=== PATIENT | male | born 1980 | race Caucasian/White ===

== ENCOUNTER 2024-05-19 06:51 | Emergency (ER) | payer BC, SELFPAY ==
[2024-05-19 06:53] VITALS: BP 149/101; PULSE 92; RESP 20; TEMP 36.6; O2SAT 98; BMI 30.2
--- NOTE | 2024-05-19 07:08 | HMH.EDGENADL ---
Discharge Plan Disposition Chief Complaint: Wound/Laceration Referrals Follow up/Referrals: Provider,Referral, [Primary Care Provider] - See instructions Activity Restrictions/Add. Instructions Additional Instructions/Restrictions: You were evaluated in the emergency department today. Please keep your wound clean and dry. Do not submerge it under any water until completely healed and sutures are removed. Sutures will need to be removed in approximately 8-10 days. I recommend removal by medical professional. Follow-up closely with your primary care provider for wound check. Return to the emergency department for new or worsening symptoms, such as redness warmth surrounding the wound, pus draining from the wound, or other concerns. Clinical Impressions Clinical Impression: Laceration of leg Instructions Patient Instructions: DI for Laceration Repair Discharge ED Provider: Chiquita Husain General Adult HPI General Chief complaint: Wound/Laceration Stated complaint: laceraion L left leg Time Seen by Provider: 05/19/24 07:01 Mode of Arrival: Ambulatory Source of Information: Patient Limitations: No Limitations Description of Symptoms (Recalled from ER Triage Doc. by RN): Pt presents to ED for a leg laceration. Pt states he cut his leg on the guard rail. Pt states he's not in pain and has no other complaints at this time. Pt is A&O*4. History of Present Illness HPI narrative: This patient is a 43-year-old male who denies significant past medical history presenting to the emergency department for evaluation with concern for a wound to his left lower leg. He reports that he is camping and he was walking from his campsite to his car when he hit his left cuba on a guardrail. This happened just prior to arrival. No other concerns or complaints. No numbness or tingling noted. He states his last tetanus shot was in 2007. Related Data Allergies Allergy/AdvReac Type Severity Reaction Status Date / Time HYDROCODONE Allergy Unknown Uncoded 10/18/17 14:57 INGREDIENT: NO KNOWN - NO Allergy Unknown Uncoded 10/18/17 14:57 KNOWN DRUG ALLERGY [facility] Disclaimer: The information contained in this section may have been updated after the patient was seen, as this information can be updated by other users. Social History Smoking Status: Unknown if ever smoked alcohol intake: never current occupational status: employed Travel in the last 8 weeks: None ROS Obtained: Yes All systems reviewed & no additional complaints except as documented Physical Exam General General appearance: alert and in no apparent distress Head Head exam: atraumatic and normocephalic Eye Eye exam: Present normal appearance, PERRL and EOMI ENT ENT exam: Present normal exam, normal oropharynx, mucous membranes moist and normal external ear exam Neck Neck exam: Present normal inspection, full ROM and trachea midline; Absent tenderness Chest Chest inspection: Present normal inspection and symmetric chest wall rise; Absent tenderness Respiratory Respiratory exam: Present normal lung sounds bilaterally; Absent respiratory distress, wheezes, stridor or accessory muscle use Cardiovascular Cardiovascular exam: Present regular rate and normal rhythm Abdominal Exam Abdominal exam: Present soft; Absent distention, tenderness or guarding Extremities Exam Extremities exam: Present full ROM, normal capillary refill and other (1.5 cm linear laceration to the center of the anterior left lower leg that is hemostatic. All compartments soft. Neurovascularly intact distally.); Absent tenderness or edema Back Exam Back exam: Present normal inspection and full ROM; Absent tenderness Neurological Exam Neurological exam: Present alert, oriented X3, CN II-XII intact and normal gait; Absent motor sensory deficit Psychiatric Psychiatric exam: Present normal affect and normal mood Skin Skin exam: Present warm and dry Medical Decision Making Medical Records Medical records reviewed: Yes I reviewed the patient's medical records. Khurram Inquiry Pt receiving controlled substance: No Vital Signs: 05/19/24 06:53 Temperature 97.8 F Temperature Source Oral Pulse Rate [Left] 92 H Respiratory Rate 20 Blood Pressure [Right Arm] 149/101 H Blood Pressure Mean [Right Arm] 117 02 Sat by Pulse Oximetry 98 Oxygen Delivery Method Room Air Lab Data Lab results reviewed: Yes I reviewed the patient's lab results. Orders (Tests/Meds): ED MEDICATIONS Generic Name Dose Route Start Last Admin Trade Name Freq PRN Reason Stop Dose Admin Bacitracin 1 gm 05/19/24 07:33 Bacitracin Zinc Oint 30gm Tube TP 05/19/24 07:34 ONCE ONE Discontinued Medications Generic Name Dose Route Start Last Admin Trade Name Freq PRN Reason Stop Dose Admin Lidocaine/Epinephrine 10 ml 05/19/24 07:06 Lidocaine 1% W/Epi 1:100,000 20ml Vial IJ 05/19/24 07:07 ONCE ONE Tetanus/Reduced Diphtheria/Acell Pertussis 0.5 ml 05/19/24 07:06 Tet/Diphth/Pert-Adult 0.5ml Syringe IM 05/19/24 07:07 .ONCE ONE Medical Decision Narrative: In summary, this patient is a 43-year-old male presenting to the Emergency Department for evaluation of laceration of the left lower leg. Differential diagnoses considered include but are not limited to laceration, abrasion, foreign body, hematoma. Ruling out the most morbid conditions drove assessment. On exam, the patient is very well-appearing. The wound is superficial and there is no obvious foreign body on wound exploration. Low mechanism of injury, so doubt bony abnormality. Given this, I do not feel that labs or imaging are indicated as they would likely not change control manager. Tdap booster was administered. Patient consented to laceration repair. Wound was thoroughly irrigated and explored. No contamination or foreign bodies. Please see laceration repair note for further documentation. After successful laceration repair, wound was covered with bacitracin. At this time, patient was deemed to be appropriate for discharge with close follow-up for wound recheck and suture removal. He was given instructions for wound care as well as strict return precautions. He was discharged after all questions were answered. Procedures Risk/Benefits of Procedure(s) Were Explained: Yes Laceration Laceration 1: Site: lower extremity Side (If applicable): left Size (cm): 1.5 Description: linear Depth: simple, single layer Local Anesthetic: lidocaine 1% and with epi Amount of anesthesia used (mL): 3 Pre-repair: wound explored, irrigated extensively and deep structures intact Skin layer closed with: nylon Size (cm): 4-0 Number of sutures: 2 Technique: simple, interrupted Critical Care Critical Care Time Critical Care Time: No
[2024-05-19] MEDS: TET/DIPHTH/PERT-ADULT 0.5ML SYRINGE 0.5 ML IM (07:10)
[2024-05-19] MEDS: LIDOCAINE 1% W/EPI 1:100,000 20ML VIAL 10 ML IJ (07:10)
[2024-05-19] MEDS: BACITRACIN ZINC OINT 30GM TUBE TP (07:33)
[2024-05-19 07:50] VITALS: BP 0/0; PULSE 0; RESP 0; TEMP -17.7; TEMP 0
== END 2024-05-19 07:51 | disposition home or self-care (01) ==
PROVIDERS: Emergency Provider Emergency Medicine
DX: S81.812A Laceration without foreign body, left lower leg, initial encounter (principal); W22.8XXA Striking against or struck by other objects, initial encounter; Z23 Encounter for immunization
CPT/HCPCS: 12001; 90471; 90715; 99283

== ENCOUNTER 2025-03-21 15:18 | Outpatient (CLI) | payer BC, SELFPAY ==
--- NOTE | 2025-03-21 15:24 | XR_ITS ---
FINAL REPORT CLINICAL HISTORY: knot on breastbone at xiphoid FINDINGS: No acute pulmonary density is evident. There is no evidence of effusion or other pleural disease. The mediastinum has a normal appearance. The cardiac silhouette is unremarkable. The sternum is unremarkable however the xiphoid process is not well-seen. IMPRESSION: Unremarkable chest exam. Xiphoid process not well-seen. CT may be considered to better evaluate this region. Reviewed, Interpreted and Dictated by Joana Horan MD Transcribed by No Harry Authenticated and . [facility]
== END 2025-03-21 23:59 | disposition home or self-care (01) ==
LOC: RAD 15:19
PROVIDERS: PCP Nurse Practitioner Family; Visit Provider Nurse Practitioner Family
DX: R07.9 Chest pain, unspecified (principal)
CPT/HCPCS: 71046

== ENCOUNTER 2025-04-11 15:17 | Outpatient (CLI) | payer BC, SELFPAY ==
--- OUTSIDE RECORDS SUMMARY | 2025-04-11 15:27 | XMS_ITS | Clinical Summary ---
Author Organization 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 Social History Tobacco Use Types Packs/Day Years Used Date Smoking Tobacco: Never Smokeless Tobacco: Never Alcohol Use Standard Drinks/Week Comments No 0 (1 standard drink = 0.6 oz pur e alcohol) PHQ-2 Answer Date Recorded PHQ-2 Total Score 0 03/24/2021 Sex and Gender Information Value Date Recorded Sex Assigned at Not on file Legal Sex Male 7:39 AM EDT Gender Identity Not on file Sexual Orientation Not on file Obstetrics History Last Filed Vital Signs Vital Sign Reading Time Taken Comments Blood Pressure 124/94 07/08/2021 4:21 AM EDT Pulse 79 07/08/2021 4:21 AM EDT Temperature 37 C (98.6 F) 07/08/2021 4:21 AM EDT Respiratory Rate 18 07/08/2021 4:21 AM EDT Oxygen Saturation 99% 07/08/2021 4:21 AM EDT Inhaled Oxygen Concentration - - Weight 111.3 kg (245 lb 6.4 oz) 03/24/2021 2:24 PM EDT Height 185.4 cm (6' 1 ) 03/24/2021 2:24 PM EDT Body Mass Index 32.38 03/24/2021 2:24 PM EDT Plan of Treatment Health Maintenance Due Date Last Done Comments Annual Wellness Exam 1983 DTaP/TDaP/Td (2 - Tdap) 02/23/1996 02/22/1996 Hepatitis B Vaccine (1 of 3 - 19+ 3-dose series) 1999 COVID-19 Vaccine (2023-2 5 season) 2024 Influenza Vaccine (Season Ended) 2025 Meningococcal B Vaccine Aged Out No l onger eligible based on patient's age to complete this topic Pneumococcal Vaccine 0-49 Aged Out No longer eligible based on patient's age to complete this topic Goals Goal Patient Goal Type Associated Problems Recent Progress Patient-Stated? Author Maintain a healthy diet, exercise regularly and maintain an ideal body weight General No Mars Torre RMA Insurance [employer] [place] [address]
--- NOTE | 2025-04-11 15:30 | CT_ITS ---
FINAL REPORT TECHNIQUE: Axial images were obtained through the chest without contrast. Sagittal and coronal reconstructions were performed. This study was performed with techniques to keep radiation doses as low as reasonably achievable (ALARA). Individualized dose reduction techniques using automated exposure control or adjustment of mA and/or kV according to the patient's size were employed. CLINICAL HISTORY: Nodule, previous CXR COMPARISON: None FINDINGS: CT CHEST: The lungs are clear. The heart size is normal. No mediastinal mass or adenopathy is identified. There is no pericardial or pleural effusion. A small hiatal hernia is present. Limited images of the upper abdomen are otherwise unremarkable. No suspicious infiltrate or nodule identified. A calcified granuloma is noted in the left lower lobe. IMPRESSION: No evidence of pulmonary mass or nodule is identified. Reviewed, Interpreted and Dictated by Ezekiel Alonzo MD Transcribed by Shelia Rudd Authenticated and [facility]
== END 2025-04-11 23:59 | disposition home or self-care (01) ==
LOC: RAD 15:18
PROVIDERS: PCP Nurse Practitioner Family; Visit Provider Nurse Practitioner Family
DX: K44.9 Diaphragmatic hernia without obstruction or gangrene (principal); J84.10 Pulmonary fibrosis, unspecified
CPT/HCPCS: 71250

== ENCOUNTER 2025-04-29 08:43 | Outpatient (CLI) | payer BC, SELFPAY ==
--- OUTSIDE RECORDS SUMMARY | 2025-04-29 08:46 | XMS_ITS | Clinical Summary ---
Author Organization [facility] Address [address] [place] [address] Phone Care Team Providers Care Receiving Team Member Name Role Phone Unavailable Primary Care Provider [...] Torre RMA Insurance [place] [address]
--- NOTE | 2025-04-29 09:00 | US_ITS ---
FINAL REPORT CLINICAL HISTORY: RUQ pain COMPARISON: None FINDINGS: Sonographic images of the right upper quadrant were obtained. The pancreas is obscured.The liver has an unremarkable appearance. There is a multitude of gallstones in the gallbladder. A lobular polypoid lesion is noted in the lateral wall of the gallbladder. This is nonmobile and measures 1.2 x 0.8 cm. This may represent an unusual polyp. It demonstrates no vascularity. There is no evidence of biliary ductal dilatation.The common duct measures 5 mm. Limited images of the right kidney are unremarkable. IMPRESSION: Gallstones. Questionable unusual polyp. Reviewed, Interpreted and Dictated by Ezekiel Alonzo MD Transcribed by Racquel Serrano Authenticated and [facility]
--- NOTE | 2025-04-29 15:14 | ECG_ITS ---
APPROVED REPORT Exam: Resting ECG HR:86 bpm ECG Measurements Heart Rate 86 AXES UT 139 P 57 QRSd 118 QRS 89 QT 362 T 29 QTc 405 Conclusion SINUS RHYTHM WITH SINUS ARRHYTHMIA POSSIBLE INFERIOR MYOCARDIAL INFARCTION , PROBABLY OLD [30 ms Q WAVE IN II/aVF] BORDERLINE ECG UNCONFIRMED REPORT Electronically signed by : Chad Roblero MD 04/30/2025 08:45:59
== END 2025-04-29 23:59 | disposition home or self-care (01) ==
LOC: RAD 08:44
PROVIDERS: PCP Nurse Practitioner Family; Visit Provider Nurse Practitioner Family
DX: I49.8 Other specified cardiac arrhythmias (principal); K80.20 Calculus of gallbladder without cholecystitis without obstruction; R94.31 Abnormal electrocardiogram [ECG] [EKG]
CPT/HCPCS: 76705; 93005

== ENCOUNTER 2025-04-29 14:52 | Emergency (ER) | payer BC, SELFPAY ==
--- NOTE | 2025-04-29 15:01 | CT_ITS ---
FINAL REPORT TECHNIQUE: After the administration of oral and intravenous contrast, axial images were obtained through the abdomen and pelvis by computed tomography. The study was performed with techniques to keep radiation dose as low as reasonably achievable, (ALARA). Individual dose reduction techniques using automated exposure control or adjustment of mA and/or kV according to the patient's size were employed. CLINICAL HISTORY: right upper abd pain COMPARISON: None FINDINGS: Abdomen: The lung bases are clear. There is mild fatty infiltration of the liver. The gallbladder contains gallstones as well as sludge. The spleen, pancreas, adrenals and kidneys appear unremarkable. The aorta is normal in caliber. There is no free fluid or adenopathy. Pelvis: The appendix is not identified. The urinary bladder is contracted. There is no free fluid or adenopathy. IMPRESSION: The gallbladder contains gallstones as well as sludge. Mild fatty infiltration of the liver. Reviewed, Interpreted and Dictated by Ezekiel Alonzo MD Transcribed by Shelia Rudd Authenticated and [facility]
--- NOTE | 2025-04-29 15:01 | XR_ITS ---
FINAL REPORT CLINICAL HISTORY: short of breath COMPARISON: 03/21/2025 FINDINGS: The heart size is normal. The mediastinum is normal. There is no focal infiltrate or edema. There are no pleural effusions. There is no pneumothorax. There is no osseous abnormality. IMPRESSION: No acute cardiopulmonary process Reviewed, Interpreted and Dictated by Ezekiel Alonzo MD Transcribed by Racquel Serrano Authenticated and [facility]
--- NOTE | 2025-04-29 15:03 | ED_ITS ---
Discharge Plan Disposition Patient Disposition: Home, Self-Care Prescriptions Prescriptions: No Action No Known Home Medications Referrals Follow up/Referrals: Carlito Louis MD [Staff Physician, General Surgery] - See instructions Roney Emmanuel APRN [Primary Care Provider, Family Practice] - See instructions Activity Restrictions/Add. Instructions Additional Instructions/Restrictions: Follow-up bland diet. Call Dr. Louis's office in the morning. If you have any worsening signs or symptoms please return to the ED Clinical Impressions Clinical Impression: RUQ abdominal pain, Cholelithiases Instructions Patient Instructions: Anatomy of a Gallstone, Acute Abdominal Pain Print Language Print Language: Kazakh Discharge ED Provider: Lawrence Mohamud General Adult HPI <Wendy Ruiz (ED), INVESTIGATOR [employer] - Last Filed: 04/29/25 18:59> General Chief complaint: PAIN Stated complaint: Possible Gallbladder Attack Time Seen by Provider: 04/29/25 14:55 History of Present Illness HPI narrative: 44-year-old male presents to the ED today for complaint of right upper quadrant abdominal pain that has been going on for months. This is an on and off problem for him. He had an ultrasound today and started having increased pain in his right upper quadrant and nausea. He says he cannot throw up. He has had diarrhea. He says the diarrhea is worse after he eats certain things and the pain is worse after he eats certain things. Patient is very anxious about doing labs and IV. He is pacing around the room not wanting to have this done. Significant other is at bedside trying to help. Related Data Home Medications ?Medication ?Instructions ?Recorded ?Confirmed No Known Home Medications 03/20/2504/01 Allergies Allergy/AdvReac Type Severity Reaction Status Date / Time hydrocodone AdvReac Mild Verified 04/24/25 14:59 PFSH <Wendy Ruiz (ED), INVESTIGATOR [employer] - Last Filed: 04/29/25 18:59> PFS Disclaimer: The information contained in this section may have been updated after the patient was seen, as this information can be updated by other users. 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 Surgical History Hx of tonsillectomy Family History Mother , 2011 Diabetes Coronary artery disease Father , 2014 Hypertension Cancer colon Heart attack Sister Cancer, Onset Age: 51 breast Social History Smoking Status: Former smoker second hand exposure: Yes alcohol intake: former year quit: 2002 substance use type: denies use current occupational status: employed Travel in the last 8 weeks?: None household members: significant other and children housing: house marital status: life partner education level: high school service: No correction: No 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: No Are you experiencing any unusual bleeding?: No Do you have any muscle aches/pain?: No Do you have any abdominal pain?: No Are you experiencing loss of taste or smell?: No <Wendy Ruiz (ED), INVESTIGATOR [employer] - Last Filed: 04/29/25 18:59> ROS Obtained: Yes Systems reviewed as appropriate & no additional complaints except as documented Constitutional Constitutional: Reports as per HPI Physical Exam <Wendy Ruiz (ED), INVESTIGATOR [employer] - Last Filed: 04/29/25 18:59> General General appearance: alert and anxious Head Head exam: normocephalic Eye Eye exam: Present PERRL and EOMI ENT ENT exam: Present normal oropharynx and mucous membranes moist Neck Neck exam: Present normal inspection, full ROM and trachea midline Respiratory Respiratory exam: Present normal lung sounds bilaterally Cardiovascular Cardiovascular exam: Present regular rate, normal rhythm, normal heart sounds, +S1 and +S2 Abdominal Exam Abdominal exam: Present soft, tenderness and guarding Abdominal tenderness: Present RUQ and epigastrium Extremities Exam Extremities exam: Present normal inspection, full ROM and normal capillary refill Neurological Exam Neurological exam: Present alert, oriented X3 and normal gait Skin Skin exam: Present warm, dry and intact Medical Decision Making <Wendy Nohemytrent (ED), INVESTIGATOR [employer] - Last Filed: 04/29/25 18:59> Medical Records Screening: Per USPSTF and CDC recommendations, given the prevalence of disease in our region, it is our hospital?s policy to screen for HIV and viral Hepatitis for all patients aged 18 and over and those with ongoing risk factors. Khurram Inquiry Pt receiving controlled substance: No Khurram was queried for this patient: No Vital Signs: 04/29/25 15:08 04/29/25 15:54 04/29/25 17:06 Temperature 97.9 F 0 F L Temperature Source Oral Pulse Rate 94 H 0 L Pulse Rate [Right] 75 Respiratory Rate 18 18 0 L Blood Pressure 201/120 H 0/0 L Blood Pressure [Right Arm] 173/120 H Blood Pressure Mean 147 Blood Pressure Mean [Right Arm] 137 02 Sat by Pulse Oximetry 97 97 Oxygen Delivery Method Room Air Room Air Lab Data Lab Results 04/29/25 15:06: WBC 10.3, RBC 5.67, Hgb 16.6, Hct 48.8, MCV 86.1, MCH 29.3, MCHC 34.0, RDW 12.3, Plt Count 401, MPV 9.4, Neut % (Auto) 71.3, Lymph % (Auto) 16.6, Morehouse % (Auto) 8.5, Eos % (Auto) 2.2, Baso % (Auto) 1.0, Neut # (Auto) 7.3, Lymph # (Auto) 1.7, Morehouse # (Auto) 0.9, Eos # (Auto) 0.2, Baso # (Auto) 0.1, Sodium 142, Potassium 3.3 L, Chloride 104, Carbon Dioxide 26, Anion Gap 15.3 H, BUN 4 L , Creatinine 0.90, Estimated Creat Clear 155, Estimated GFR 92, Est GFR ( Amer) 111, Glucose 108 H, Calcium 8.8, Magnesium 2.3, Total Bilirubin 0.6, AST 30, ALT 19, Alkaline Phosphatase 87, Troponin I < 0.01, Total Protein 8.3 H, Albumin 4.8, Globulin 3.5 H, Albumin/Globulin Ratio 1.4, Lipase 213, HCV Ab DENICE w/Rflx PCR Qn Negative, HIV Ag/Ab Combo Qual Negative 04/29/25 15:06 04/29/25 15:06 Orders (Tests/Meds): ED MEDICATIONS Discontinued Medications Generic Name Dose Route Start Last Admin Trade Name Freq PRN Reason Stop Dose Admin Acetaminophen 1,000 mg 04/29/25 15:08 04/29/25 16:01 Acetaminophen 1,000mg/100ml Vial IV 04/29/25 15:09 Not Given ONCE ONE Famotidine 20 mg 04/29/25 15:01 04/29/25 16:01 Famotidine 20mg/2ml Vial IV 04/29/25 15:02 20 mg ONCE ONE Administration Sodium Chloride 1,000 mls @ 999 mls/hr 04/29/25 15:01 04/29/25 16:00 Sod Chlor 0.9% 1000ml Bag IV 04/29/25 16:01 999 mls/hr .Q1H1M ONE Administration Iopamidol 75 ml 04/29/25 15:20 04/29/25 15:21 Iopamidol-370 (76%);100ml Bottle IV 04/29/25 15:21 75 ml ONCE ONE Administration Ketorolac Tromethamine 30 mg 04/29/25 15:01 04/29/25 16:01 Ketorolac 30mg/Ml Vial IV 04/29/25 15:02 30 mg ONCE ONE Administration Ondansetron HCl 4 mg 04/29/25 15:01 04/29/25 16:01 Ondansetron 4mg/2ml Vial IV 04/29/25 15:02 Not Given ONCE ONE Potassium Chloride 40 meq 04/29/25 15:35 04/29/25 16:00 Potassium Chloride 20meq Tab PO 04/29/25 15:36 40 meq ONCE ONE Administration Sodium Chloride 8 ml 04/29/25 15:01 Sodium Chloride 0.9% 10ml Vial IV 05/29/25 15:00 NEEDED PRN dilute pepcid Sodium Chloride 10 ml 04/29/25 15:20 04/29/25 15:21 Sodium Chloride 0.9% 10ml Syr (Rad Only) IV 05/29/25 15:19 10 ml NEEDED PRN Administration Maintain IV Site ORDERS Category Date Time Status CT abdomen pelvis w con Stat Cat Scan 04/29/25 15:01 Completed Chest XR -- portable [XR chest portable] Stat Exams 04/29/25 15:01 Completed CBC [Complete Blood Count Auto Diff] Stat Lab 04/29/25 15:06 Completed Comprehensive Metabolic Panel Stat Lab 04/29/25 15:06 Completed HIV Combo Stat Lab 04/29/25 15:06 Completed Hepatitis C Ab Qual. W/ RFX Stat Lab 04/29/25 15:06 Completed Lipase Stat Lab 04/29/25 15:06 Completed Magnesium Stat Lab 04/29/25 15:06 Completed Trop I [Troponin I] Stat Lab 04/29/25 15:06 Completed Medical Decision Narrative: patient is a 44-year-old male presenting to the emergency department for evaluation of right upper quadrant abdominal pain. This has been going on for months. Patient is hemodynamically stable and nontoxic-appearing upon arrival, afebrile. Differential diagnosis includes cholelithiasis, cholecystitis, enteritis, gastroenteritis among others. Workup will be conducted with hematologic labs, specific imaging. Initial inventions include crystalloid bolus, analgesics. Initial workup reviewed by me hematologic labs are remarkable for hypokalemia which I replaced here in the ED. Imaging informally interpreted by me and remarkable for gallstones. Formal imaging read remarkable for gallstones and sludge. Upon repeat evaluation patient's pain is improved. Patient was given IV Tylenol and IV Toradol. He has some improvement in his pain. He does refuse all narcotics. He wants to go home. I did talk to Dr. Mohamud about his case. He is fine to go home with surgical follow-up. I will put Dr. Louis's information on his paperwork. He patient has agreed to call MD in the morning. Patient is safe for discharge home. <Lawrence Mohamud MD - Last Filed: 04/29/25 19:05> Vital Signs: 04/29/25 15:08 04/29/25 15:54 04/29/25 17:06 Temperature 97.9 F 0 F L Temperature Source Oral Pulse Rate 94 H 0 L Pulse Rate [Right] 75 Respiratory Rate 18 18 0 L Blood Pressure 201/120 H 0/0 L Blood Pressure [Right Arm] 173/120 H Blood Pressure Mean 147 Blood Pressure Mean [Right Arm] 137 02 Sat by Pulse Oximetry 97 97 Oxygen Delivery Method Room Air Room Air Lab Data Lab Results 04/29/25 15:06: WBC 10.3, RBC 5.67, Hgb 16.6, Hct 48.8, MCV 86.1, MCH 29.3, MCHC 34.0, RDW 12.3, Plt Count 401, MPV 9.4, Neut % (Auto) 71.3, Lymph % (Auto) 16.6, Morehouse % (Auto) 8.5, Eos % (Auto) 2.2, Baso % (Auto) 1.0, Neut # (Auto) 7.3, Lymph # (Auto) 1.7, Morehouse # (Auto) 0.9, Eos # (Auto) 0.2, Baso # (Auto) 0.1, Sodium 142, Potassium 3.3 L, Chloride 104, Carbon Dioxide 26, Anion Gap 15.3 H, BUN 4 L , Creatinine 0.90, Estimated Creat Clear 155, Estimated GFR 92, Est GFR ( Amer) 111, Glucose 108 H, Calcium 8.8, Magnesium 2.3, Total Bilirubin 0.6, AST 30, ALT 19, Alkaline Phosphatase 87, Troponin I < 0.01, Total Protein 8.3 H, Albumin 4.8, Globulin 3.5 H, Albumin/Globulin Ratio 1.4, Lipase 213, HCV Ab DENICE w/Rflx PCR Qn Negative, HIV Ag/Ab Combo Qual Negative Orders (Tests/Meds): ED MEDICATIONS Discontinued Medications Generic Name Dose Route Start Last Admin Trade Name Miri PRN Reason Stop Dose Admin Acetaminophen 1,000 mg 04/29/25 15:08 04/29/25 16:01 Acetaminophen 1,000mg/100ml Vial IV 04/29/25 15:09 Not Given ONCE ONE Famotidine 20 mg 04/29/25 15:01 04/29/25 16:01 Famotidine 20mg/2ml Vial IV 04/29/25 15:02 20 mg ONCE ONE Administration Sodium Chloride 1,000 mls @ 999 mls/hr 04/29/25 15:01 04/29/25 16:00 Sod Chlor 0.9% 1000ml Bag IV 04/29/25 16:01 999 mls/hr .Q1H1M ONE Administration Iopamidol 75 ml 04/29/25 15:20 04/29/25 15:21 Iopamidol-370 (76%);100ml Bottle IV 04/29/25 15:21 75 ml ONCE ONE Administration Ketorolac Tromethamine 30 mg 04/29/25 15:01 04/29/25 16:01 Ketorolac 30mg/Ml Vial IV 04/29/25 15:02 30 mg ONCE ONE Administration Ondansetron HCl 4 mg 04/29/25 15:01 04/29/25 16:01 Ondansetron 4mg/2ml Vial IV 04/29/25 15:02 Not Given ONCE ONE Potassium Chloride 40 meq 04/29/25 15:35 04/29/25 16:00 Potassium Chloride 20meq Tab PO 04/29/25 15:36 40 meq ONCE ONE Administration Sodium Chloride 8 ml 04/29/25 15:01 Sodium Chloride 0.9% 10ml Vial IV 05/29/25 15:00 NEEDED PRN dilute pepcid Sodium Chloride 10 ml 04/29/25 15:20 04/29/25 15:21 Sodium Chloride 0.9% 10ml Syr (Rad Only) IV 05/29/25 15:19 10 ml NEEDED PRN Administration Maintain IV Site ORDERS Category Date Time Status CT abdomen pelvis w con Stat Cat Scan 04/29/25 15:01 Completed Chest XR -- portable [XR chest portable] Stat Exams 04/29/25 15:01 Completed CBC [Complete Blood Count Auto Diff] Stat Lab 04/29/25 15:06 Completed Comprehensive Metabolic Panel Stat Lab 04/29/25 15:06 Completed HIV Combo Stat Lab 04/29/25 15:06 Completed Hepatitis C Ab Qual. W/ RFX Stat Lab 04/29/25 15:06 Completed Lipase Stat Lab 04/29/25 15:06 Completed Magnesium Stat Lab 04/29/25 15:06 Completed Trop I [Troponin I] Stat Lab 04/29/25 15:06 Completed ECG Data Tracing #1: I reviewed this ECG and interpreted as documented below: (Sinus rhythm with sinus arrhythmia at 86 bpm with IN 139, QRS 118, QTc 405. T wave inversions with ST depressions in inferior leads with no reciprocal elevations) Medical Decision Narrative: patient is a 44-year-old male presenting to the emergency department for evaluation of right upper quadrant abdominal pain. This has been going on for months. Patient is hemodynamically stable and nontoxic-appearing upon arrival, afebrile. Differential diagnosis includes cholelithiasis, cholecystitis, enteritis, gastroenteritis among others. Workup will be conducted with hematologic labs, specific imaging. Initial inventions include crystalloid bolus, analgesics. Initial workup reviewed by me hematologic labs are remarkable for hypokalemia which I replaced here in the ED. Imaging informally interpreted by me and remarkable for gallstones. Formal imaging read remarkable for gallstones and sludge. Upon repeat evaluation patient's pain is improved. Patient was given IV Tylenol and IV Toradol. He has some improvement in his pain. He does refuse all narcotics. He wants to go home. I did talk to Dr. Mohamud about his case. He is fine to go home with surgical follow-up. I will put Dr. Louis's information on his paperwork. He patient has agreed to call MD in the morning. Patient is safe for discharge home. I was consulted by the AGMA, and we discussed the complexity of the problems being addressed. I approved the treatment and management plan for this patient's care in the Emergency Department, thus performing a substantive portion of the medical decision making. Lawrence Mohamud MD Critical Care <Wendy Ruiz (ED), INVESTIGATOR [employer] - Last Filed: 04/29/25 18:59> Critical Care Time Critical Care Time: No
--- OUTSIDE RECORDS SUMMARY | 2025-04-29 15:06 | XMS_ITS | Clinical Summary ---
Author Organization 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
[2025-04-29 15:08] VITALS: BP 173/120; PULSE 75; RESP 18; TEMP 36.6; O2SAT 97; BMI 29.5
[2025-04-29 15:12] LABS: Basophils # 0.1 K/mm3 (0-0.2); Eosinophils # 0.2 Kmm3 (0.0-0.4); Eosinophils % 2.2 % (0.1-12.0); Hematocrit 48.8 % (42.0-52.0); Hemoglobin 16.6 g/dL (14.1-18.0); Immature Granulocytes # 0.04 10^3uL; Immature Granulocytes % 0.4 %; Lymphocytes # 1.7 K/mm3 (0.7-4.5); Lymphocytes % 16.6 % (10-50); Mean Corpuscular Hemoglobin 29.3 pg (27.0-31.2); Mean Corpuscular Volume 86.1 fl (80-94); Mean Platelet Volume 9.4 fl (7.4-10.4); Monocytes # 0.9 K/mm3 (0.1-1.0); Monocytes % 8.5 % (1.7-9.3); Neutrophils # 7.3 K/mm3 (1.8-7.8); Neutrophils % 71.3 % (37.0-80.0); Nucleated Red Blood Cells # 0 10^3/uL; Nucleated Red Blood Cells % 0 %; Platelet Count 401 K/mm3 (142-424); Red Blood Count 5.67 M/mm3 (4.60-6.20); Red Cell Distribution Width 12.3 % (11.5-17.5); Red Cell Distribution Width-SD 38.5 fL; White Blood Count 10.3 K/mm3 (4.8-10.8)
[2025-04-29 15:20] LABS: Albumin Level 4.8 g/dl (3.5-5.0); Chloride 104 mmol/L (98-107)
--- NOTE | 2025-04-29 15:20 | PC.NURSE ---
Transported to radiology via by radiology staff.
[2025-04-29 15:21] LABS: Potassium 3.3 mmoL/L (3.5-5.1); Sodium 142 mmol/L (136-145)
[2025-04-29] MEDS: SODIUM CHLORIDE 0.9% 10ML SYR (RAD ONLY) 10 ML IV (15:21)
[2025-04-29] MEDS: IOPAMIDOL-370 (76%);100ML BOTTLE 75 ML IV (15:21)
[2025-04-29 15:23] LABS: Alanine Aminotransferase 19 U/L (12-78); Albumin/Globulin Ratio 1.4 (1.1-1.8); Alkaline Phosphatase 87 U/L (38-126); Anion Gap 15.3 mEq/L (5-15); Aspartate Amino Transferase 30 U/L (17-59); Bilirubin,Total 0.6 mg/dl (0.2-1.3); Blood Urea Nitrogen 4 mg/dl (9-20); Carbon Dioxide 26 mmol/L (22.0-30.0); Creatinine Clearance Estimated 155 mL/min (50-200); Estimated Glomerular Filt Rate 92 ml/min (>60); GFR (African American) 111 ML/MIN (>60); Globulin 3.5 g/dL (1.3-3.2); Total Protein,Serum 8.3 g/dl (6.3-8.2)
[2025-04-29 15:24] LABS: Calcium 8.8 mg/dl (8.4-10.2); Glucose 108 mg/dl (74-100); Lipase 213 U/L (23-300); Magnesium 2.3 mg/dl (1.6-2.3)
--- NOTE | 2025-04-29 15:26 | PC.NURSE ---
pt bck from RAD @ this time
[2025-04-29 15:40] LABS: Troponin I < 0.01 ng/ml (0.00-0.034)
--- NOTE | 2025-04-29 15:51 | PC.NURSE ---
went to obtain new vitals pt refused. notified RN
[2025-04-29 15:54] VITALS: BP 201/120; PULSE 94; RESP 18; O2SAT 97
[2025-04-29] MEDS: 0.9 % SODIUM CHLORIDE 1000ML 1,000 ML 999 ML IV (16:00)
[2025-04-29] MEDS: POTASSIUM CHLORIDE 20MEQ TAB 40 MEQ PO (16:00)
[2025-04-29] MEDS: FAMOTIDINE 20MG/2ML VIAL 20 MG IV (16:01)
[2025-04-29] MEDS: KETOROLAC 30MG/ML VIAL 30 MG IV (16:01)
[2025-04-29 16:35] LABS: HIV Combo NEGATIVE (Negative)
[2025-04-29 16:43] LABS: Hepatitis C Ab Qual. W/ RFX NEGATIVE (Negative)
[2025-04-29 17:06] VITALS: BP 0/0; PULSE 0; RESP 0; TEMP -17.7; TEMP 0; O2SAT 0
== END 2025-04-29 17:07 | disposition home or self-care (01) ==
PROVIDERS: Emergency Medicine; Nurse Practitioner; Emergency Provider Emergency Medicine; PCP Nurse Practitioner Family
DX: K80.20 Calculus of gallbladder without cholecystitis without obstruction (principal); R10.11 Right upper quadrant pain; R11.0 Nausea; I49.9 Cardiac arrhythmia, unspecified
CPT/HCPCS: 71045; 74177; 80053; 83690; 83735; 84484; 85025; 86803; 87389; 96361; 96374; 96375; 99285; J1885; J7030; Q9967

== ENCOUNTER 2025-05-20 06:01 | Day surgery (SDC) | payer BC, SELFPAY ==
[2025-05-15 14:39] VITALS: BMI 29.2
--- NOTE | 2025-05-15 14:55 | SUR.PREOP ---
Pt no show for TOBIAS holland. Current labs and EKG in system. Preop phone call performed.
[2025-05-20] VITALS (11 sets, daily range): BP systolic 139–173; BP diastolic 71–106; PULSE 67–99; RESP 14–18; TEMP 36.1–43; O2SAT 95–100; BMI 29.2
[2025-05-20] MEDS: LACTATED RINGERS 1000ML 1,000 ML 25 ML IV (06:51)
--- NOTE | 2025-05-20 07:06 | P.PNANES_ITS ---
[facility] Disclaimer: The information contained in this section may have been updated after the patient was seen, as this information can be updated by other users. 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 Surgical History History of amputation of finger History of removal of cyst Hx of tonsillectomy Family History Mother , 2011 Diabetes Coronary artery disease Father , 2014 Hypertension Cancer colon Heart attack Sister Cancer, Onset Age: 51 breast Social History (Updated 05/20/25 @ 06:22 by Marie Massey RN) Smoking Status: Former smoker second hand exposure: Yes alcohol intake: former year quit: 2002 substance use type: denies use current occupational status: employed Travel in the last 8 weeks?: Inside the [place] household members: significant other and children housing: house marital status: life partner education level: high school service: No alf: No 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: No Are you experiencing any unusual bleeding?: No Do you have any muscle aches/pain?: No Do you have any abdominal pain?: No Are you experiencing loss of taste or smell?: No [facility] Anesthesia Checklist Patient Identification Patient Identification: Arm Band Structural Data Admitted From: Home Planned Operative Procedure/s: Laparoscopic Cholecystectomy Consent for Planned Operative Procedure(s) Verified: Yes Verified Documents: Surgical Consent and History and Physical NPO Status Verified Time NPO: 00:00 Additional verifications Anesthesia Reactions: No Hx Blood Transfusions: No Blood Transfusion Reaction: No Airway Assessment Mallampati Score:: Class II C-Spine Mobility Assessed: Yes TMJ Mobility Assessed: Yes Dentition: Good Dentition Neurological Assessment Level of Consciousness: Awake, Alert and Appropriate Anesthesia Plan Anesthesia Risk discussed: Yes Anesthesia Plan: Verified ASA Class: II Anesthesia Type: General
[2025-05-20] MEDS: BUPIVACAINE 0.5% 30ML VIAL 150 MG IJ (07:50)
[2025-05-20] MEDS: LIDOCAINE 1% 20ML MDV 20 ML IJ (07:50)
--- NOTE | 2025-05-20 09:00 | P.OP_ITS ---
Date of procedure: 05/20/25 Pre-op Diagnosis:: Gallbladder disease Post-op Diagnosis:: Gallstones Umbilical hernia Procedure performed:: Laparoscopic cholecystectomy Incidental primary repair of small umbilical hernia Surgeon:: Carlito Louis MD MUSIC VIDEO DIRECTOR:: Kehinde Gavin Anesthesia: GETKyle Estimated blood loss (mL): 30 Clinical Note:: Patient is a 44-year-old male with history of hypertension referred by the emergency department for gallbladder. He states that he has had some symptoms for about 5 or 6 years. Initially they were sporadic and somewhat rare. He saw his primary care provider and was scheduled for gallbladder ultrasound which was done on 04/29/2025. Ultrasound revealed gallstones with questionable unusual polyp which is nonmobile measuring 1.2 x 0.8 cm. He states that following his ultrasound he had exacerbation of his pain. He presented to the emergency department on 04/29/2025 stating that he was hoping he would have his gallbladder removed. CT scan revealed gallstones as well as sludge with mild fatty infiltration of the liver. Laboratory studies were unremarkable. He was able to be managed as an outpatient. Patient states he has a history of possibly lymphoma diagnosed when he was 8. Multiple family members have had gallbladder removal. Patient seems to have symptomatic gallstones. Nonetheless there is possible 12 mm polyp as well and for this reason alone I would advocate cholecystectomy due to the potential premalignant nature. However this could be nonechogenic sludge ball as well. Patient does wish to undergo surgery. He does have a tiny umbilical hernia which can be closed at the time of surgery primarily. Plan will be for laparoscopic possibly open cholecystectomy. I explained him the nature and details of the proposed procedure along associated risks and expected outcome. He understands and agrees to proceed. . Operative findings:: He had a distended gallbladder with several small gallstones. There was a tiny umbilical hernia. Operative note:: Consent was obtained and patient was taken to the operating room. He was given preoperative intravenous antibiotics. The operating room he was placed in a supine position. General anesthesia was induced via endotracheal tube. Abdomen was prepped and draped in the standard surgical fashion. He had tiny reducible umbilical hernia. Subumbilical skin incision was made. Dissection was carried down to the hernia sac using Metzenbaum dissection. Hernia sac was dissected free from the umbilical subdermis. Extraneous tissue of peritoneum and hernia shikha preperitoneal fat was excised to normal fascia. 0 Vicryl fascial stay sutures were placed. Martin blunt trocar was inserted through the defect and CO2 pneumoperitoneum was achieved to 15 mmHg. He was positioned in reverse Trendelenburg left side down. A couple 5 mm trocars were inserted in the right upper abdomen. 11 mm trocar was inserted in the epigastrium. Gallbladder was grasped retracted anteriorly and superiorly over the dome of the liver. Infundibulum of the gallbladder is retracted anterior laterally. Blunt dissection was carried out the neck of the gallbladder bluntly incising the visceral peritoneum. There was some minor oozing from branch of the cystic artery and Surgicel was placed for temporary hemostasis. Further dissection was carried out clearly identifying the cystic duct and cystic artery and the critical view of safety. Cystic duct was multiply clipped and sharply divided. Cystic artery was coagulated with a's ultrasonic robotic kathy and divided. S urgicel was removed as there was good hemostasis. Gallbladder was dissected free from the liver in a retrograde fashion using ultrasonic harmonic kathy. Gallbladder was placed in an Endo Catch retrieval device and removed from the abdominal cavity via the umbilical trocar site irrigation and suctioning was performed until clear. There appeared to be good hemostasis. Trocars were removed the CO2 pneumoperitoneum was evacuated. Fascia at the umbilicus was closed with several interrupted 0 Ethibond sutures. Umbilical subdermis was reapproximated to the underlying fascia with a 2-0 Vicryl. Local anesthetic was infiltrated. Skin incisions were closed with 4-0 Monocryl in a subcuticular fashion. A couple 5-0 plain fast absorbing gut were placed in the 5 mm trocar sites. Steri-Strips and dressings were applied. Condition: stable Disposition: PACU Complications:: None immediately apparent
--- NOTE | 2025-05-20 09:09 | P.PNANES_ITS ---
[facility] Anesthesia Record Part I Anesthesia Record I Intake, IV Amount: 1,200 Hydration: Adequate Estimated blood loss (mL): 15 Urine output (mL): 0 Blood Products used (#): none Blood Pressure: 140/92 SaO2: 95 Pulse Rate: 88 Airway Patency: Patent Respiratory Rate: 14 Temperature: 97.4 F Patient is:: Drowsy and Stable Stable to PACU at:: 09:04
[2025-05-20] MEDS: ONDANSETRON 4MG/2ML VIAL 4 MG IV (09:10)
[2025-05-20] MEDS: SODIUM CHLORIDE 0.9% 25ML BAG 25 ML IV (09:36)
[2025-05-20] MEDS: PROMETHAZINE HCL 25MG/ML 1ML VIAL 6.25 MG IV (09:36)
--- NOTE | 2025-05-20 12:00 | P.PNANES_ITS ---
[facility] Anesthesia Record Part II Anesthesia Record Part II Discharge Time: 10:05 Destination: Surgical Day Care (OP Surgery) PACU nurse assessment reviewed?: Yes Patient Condition:: Good Anesthesia Complications:: None Swallowing reflex intact?: Yes Airway Patency: Patent Cyanosis?: No Blood Pressure: 154/78 SaO2: 99 Respiratory Rate: 17 Pulse Rate: 99 Temperature: 97.0 F Mental Status: Alert & Oriented Pain level:: 0 Nausea and/or vomitting:: None Intake, IV Amount: 0 Hydration: Adequate
== END 2025-05-20 10:50 | disposition home or self-care (01) ==
PROVIDERS: PCP Nurse Practitioner Family; Visit Provider Surgery
PROC: 0FT44ZZ Resection of Gallbladder, Percutaneous Endoscopic Approach (ICD-10-PCS; CPT 47562; principal; 2025-05-20 07:30)
DX: K80.10 Calculus of gallbladder with chronic cholecystitis without obstruction (principal); K42.9 Umbilical hernia without obstruction or gangrene; K76.0 Fatty (change of) liver, not elsewhere classified; Z83.79 Family history of other diseases of the digestive system; Z88.5 Allergy status to narcotic agent; Z87.891 Personal history of nicotine dependence
CPT/HCPCS: 47562; 96374; J0665; J0690; J1100; J2003; J2250; J2405; J2550; J2704; J3010; J7120

== ENCOUNTER 2025-08-20 08:31 | Outpatient (CLI) | payer BC, SELFPAY ==
[2025-08-20 19:18] LABS: Hematocrit 48.7 % (42.0-52.0); Hemoglobin 16.6 g/dL (14.1-18.0); Immature Granulocytes % 0.2 %; Mean Corpuscular HGB Conc 34.1 g/dL (31.8-35.4); Mean Corpuscular Hemoglobin 29.9 pg (27.0-31.2); Mean Corpuscular Volume 87.6 fl (80-94); Nucleated Red Blood Cells % 0 %; Platelet Count 423 K/mm3 (142-424); Red Blood Count 5.56 M/mm3 (4.60-6.20); Red Cell Distribution Width-SD 39.2 fL; White Blood Count 9.3 K/mm3 (4.8-10.8)
[2025-08-20 19:36] LABS: Albumin Level 4.2 g/dl (3.5-5.0); Chloride 103 mmol/L (98-107); Potassium 3.8 mmoL/L (3.5-5.1); Sodium 139 mmol/L (136-145)
[2025-08-20 19:39] LABS: Alanine Aminotransferase 19 U/L (12-78); Albumin/Globulin Ratio 1.3 (1.1-1.8); Alkaline Phosphatase 83 U/L (38-126); Anion Gap 13.8 mEq/L (5-15); Aspartate Amino Transferase 11 U/L (17-59); Bilirubin,Total 0.5 mg/dl (0.2-1.3); Blood Urea Nitrogen 6 mg/dl (9-20); Carbon Dioxide 26 mmol/L (22.0-30.0); Creatinine,Serum 0.90 mg/dl (0.66-1.25); Estimated Glomerular Filt Rate 91 ml/min (>60); GFR (African American) 110 ML/MIN (>60); Globulin 3.2 g/dL (1.3-3.2); Total Protein,Serum 7.4 g/dl (6.3-8.2)
[2025-08-20 19:40] LABS: Calcium 9.0 mg/dl (8.4-10.2); Glucose 133 mg/dl (74-100)
[2025-08-21 09:13] LABS: Hemoglobin A1C 5.2 % (4.0-6.0)
--- OUTSIDE RECORDS SUMMARY | 2025-08-22 08:41 | XMS_ITS | Clinical Summary ---
Author Organization [facility] Address [address] [place] [address] Phone Care Team Providers Care Public Health Sanitarian Technician Name Role Phone Unavailable Primary Care Provider [...] on file Sexual Orientation Not on file Last Filed Vital Signs Vital Sign Reading [...] of 3 - 19+ 3-dose series) 1999 Cologuard 2025 Colon Cancer Screening 2025 Colonoscopy 2025 FIT 2025 Sigmoidoscopy 2025 Virtual Colonography 2025 COVID-19 Vaccine (1 - 2024-2 6 season) 2025 Influenza Vaccine (#1) 2025 Meningococcal B Vaccine Aged Out No l onger eligible based on patient's age to complete this topic Pneumococcal Vaccine 0-49 Aged Out No longer eligible based on patient's age to complete this topic Goals Goal Patient Goal Type Associated Problems Recent Progress Patient-Stated? Author Maintain a healthy diet, exercise regularly and maintain an ideal body weight General No Mars Torre, Kyle [employer] [place] [address] [place] [address]
== END 2025-08-20 23:59 ==
LOC: LAB.DROPOF 08-22 08:31
PROVIDERS: PCP Family Medicine; Visit Provider Family Medicine
DX: R55 Syncope and collapse (principal); R73.9 Hyperglycemia, unspecified
CPT/HCPCS: 80053; 83036; 85025